=== PATIENT | male | born 1990 | race Caucasian/White ===

== ENCOUNTER 2018-05-28 19:47 | Inpatient (IN) | payer SELFPAY ==
[2018-05-28] MEDS ORDERED: Sodium Chloride 0.9% 1,000 ML IV ONE (19:49)
[2018-05-28] MEDS ORDERED: Ketorolac 30 MG/ML SDV IVPUSH ONE (19:49)
--- NOTE | 2018-05-28 19:52 | EDM.PDOC ---
ED HPI GENERAL MEDICAL PROBLEM - General Chief Complaint: Chest Pain Stated Complaint: CHEST PAIN Time Seen by Provider: 05/28/18 19:48 Source of Information: Reports: Patient History Limitations: Reports: No Limitations - History of Present Illness INITIAL COMMENTS - FREE TEXT/NARRATIVE: HISTORY AND PHYSICAL: History of present illness: Patient is a 28-year-old male who presents to the emergency room today with complaints of midsternal chest pain started one hour prior to arrival. He states it is worse when taking in deep breaths. He does appear anxious. He denies any diaphoresis, nausea, vomiting or pain radiating anywhere. Denies any recent injury, trauma or falls. Denies any fever, chills Smokes a pack per day 15 years. Denies any alcohol or drug abuse. Review of systems: As per history of present illness and below otherwise all systems reviewed and negative. Past medical history: As per history of present illness and as reviewed below otherwise noncontributory. Surgical history: As per history of present illness and as reviewed below otherwise noncontributory. Social history: No reported history of drug or alcohol abuse. Family history: As per history of present illness and as reviewed below otherwise noncontributory. Physical exam: General: Well-developed and well-nourished 28-year-old male. Alert and oriented. Nontoxic appearing and in no acute distress. HEENT: Atraumatic, normocephalic, pupils equal and reactive bilaterally, negative for conjunctival pallor or scleral icterus, mucous membranes moist, throat clear, neck supple, nontender, trachea midline. No drooling or trismus noted. No meningeal signs Lungs: Slightly diminished to left otherwise clear, breath sounds equal bilaterally, chest nontender. Chest has a protruding sternum distally (normal variance) Heart: S1S2, regular rate and rhythm without overt murmur Abdomen: Soft, nondistended, nontender. Negative for masses or hepatosplenomegaly. Negative for costovertebral tenderness. Pelvis: Stable nontender. Genitourinary: Deferred. Rectal: Deferred. Skin: Somewhat pale. Intact, warm, dry. No lesions or rashes noted. Extremities: Atraumatic, negative for cords or calf pain. Neurovascular unremarkable. Neuro: Awake, alert, oriented. Cranial nerves II through XII unremarkable. Cerebellum unremarkable. Motor and sensory unremarkable throughout. Exam nonfocal. Notes: Physical examination is unremarkable.Patient's lab work is unremarkable. His EKG is normal sinus rhythm with early re-pole. No previous EKGs for comparison. After the fluids and Toradol patient reports he feels improved. Chest x-ray shows that there is a spontaneous pneumo thorax to the left side. This was atraumatic. Patient has no history of spontaneous pneumo's. Does not take any anticoagulants. Dr Robin (general surgeon) was notified of this. He will come in to see that patient. Patient's current oxygenation is 96% on room air, heart rate 80 bpm. Pain is 11/25. 2057: [facility] called to inform of x-ray results. Patient is made aware of this. Room is being set up for chest tube. 2124: Dr Robin is here to see patient. Will admit to Med/Surg for inpatient admission Diagnostics: CBC, CMP, troponin, EKG, chest x-ray Therapeutics: IV fluid, aspirin, Toradol Impression: Spontaneous pneumothorax, left Plan: Inpatient admission Definitive disposition and diagnosis as appropriate pending reevaluation and review of above. Onset: Today Duration: Hour(s): Location: Reports: Chest chest Pain Score (Numeric/FACES): 4 - Related Data Allergies Allergy/AdvReac Type Severity Reaction Status Date / Time No Known Allergies Allergy Verified 05/28/18 19:52 Home Meds: Home Meds Diclofenac Sodium [Voltaren] 75 mg PO BIDMEALS PRN #30 tab.cr 05/28/18 [Rx] ED ROS GENERAL - Review of Systems Review Of Systems: ROS reveals no pertinent complaints other than HPI. ED EXAM, GENERAL - Physical Exam Exam: See Below (See dictation) Course - Vital Signs Last Recorded V/S: Last Vital Signs Temp 96.1 F 05/28/18 19:49 Pulse 89 05/28/18 19:49 Resp 18 05/28/18 19:49 BP 135/76 05/28/18 19:49 Pulse Ox 96 05/28/18 19:49 - Orders/Labs/Meds Orders: Active Orders 24 hr Category Date Time Status Admission Status [Patient Status] [ADT] Stat ADT 05/28/18 21:31 Ordered EKG Documentation Completion [RC] STAT Care 05/28/18 19:49 Active RT Aerosol Therapy [RC] ASDIRECTED Care 05/28/18 20:44 Active Chest 1V Frontal [CR] Stat Exams 05/28/18 19:49 Taken Chest 1V Frontal [CR] Stat Exams 05/28/18 21:30 Ordered Labs: Laboratory Tests 05/28/18 05/28/18 Range/Units 20:00 20:00 WBC 10.95 (4.0-11.0) K/uL RBC 5.29 (4.50-5.90) M/uL Hgb 16.9 (13.0-17.0) g/dL Hct 46.3 (38.0-50.0) % MCV 87.5 (80.0-98.0) fL MCH 31.9 (27.0-32.0) pg MCHC 36.5 (31.0-37.0) g/dL RDW Std Deviation 40.9 (28.0-62.0) fl RDW Coeff of Sid 13 (11.0-15.0) % Plt Count 227 (150-400) K/uL MPV 9.90 (7.40-12.00) fL Neut % (Auto) 44.2 L (48.0-80.0) % Lymph % (Auto) 41.9 H (16.0-40.0) % Charlton % (Auto) 7.7 (0.0-15.0) % Eos % (Auto) 5.5 (0.0-7.0) % Baso % (Auto) 0.7 (0.0-1.5) % Neut # (Auto) 4.8 (1.4-5.7) K/uL Lymph # (Auto) 4.6 H (0.6-2.4) K/uL Charlton # (Auto) 0.8 (0.0-0.8) K/uL Eos # (Auto) 0.6 (0.0-0.7) K/uL Baso # (Auto) 0.1 (0.0-0.1) K/uL Nucleated RBC % 0.0 /100WBC Nucleated RBCs # 0 K/uL Sodium 139 (136-148) mmol/L Potassium 3.5 (3.5-5.1) mmol/L Chloride 103 (98-107) mmol/L Carbon Dioxide 27.4 (21.0-32.0) mmol/L BUN 8 (7.0-18.0) mg/dL Creatinine 1.0 (0.8-1.3) mg/dL Est Cr Clr Drug Dosing 100.44 mL/min Estimated GFR (MDRD) > 60.0 ml/min Glucose 106 (74-106) mg/dL Calcium 8.9 (8.5-10.1) mg/dL Total Bilirubin 0.4 (0.2-1.0) mg/dL AST 20 (15-37) IU/L ALT 30 (14-63) IU/L Alkaline Phosphatase 58 (46-116) U/L Troponin I < 0.050 (0.000-0.056) ng/mL Total Protein 7.5 (6.4-8.2) g/dL Albumin 4.1 (3.4-5.0) g/dL Globulin 3.4 (2.0-3.5) g/dL Albumin/Globulin Ratio 1.2 L (1.3-2.8) Meds: Medications Discontinued Medications Generic Name Dose Route Start Last Admin Trade Name Nunoq PRN Reason Stop Dose Admin Albuterol/Ipratropium 3 ml 05/28/18 20:44 Duoneb 3.0-0.5 Mg/3 Ml NEB 05/28/18 20:45 ONETIME ONE Aspirin 324 mg 05/28/18 20:11 05/28/18 20:18 Aspirin PO 05/28/18 20:12 324 mg ONETIME ONE Administration Sodium Chloride 1,000 mls @ 999 mls/hr 05/28/18 19:49 05/28/18 20:13 Normal Saline IV 05/28/18 20:49 999 mls/hr STAT ONE Administration Ketorolac Tromethamine 30 mg 05/28/18 19:49 05/28/18 20:14 Toradol IVPUSH 05/28/18 19:50 30 mg ONETIME ONE Administration Nitroglycerin 0.4 mg 05/28/18 20:11 Nitrostat SL Q5M PRN Chest Pain Departure - Departure Time of Disposition: 21:31 Disposition: Admitted As Inpatient 67 Clinical Impression: Spontaneous pneumothorax Prescriptions: Diclofenac Sodium [Voltaren] 75 mg PO BIDMEALS PRN #30 tab.cr PRN Reason: Pain Referrals: PCP,None [Primary Care Provider] - Forms: ED Department Discharge Additional Instructions: The following information is given to patients seen in the emergency department who are being discharged to home. This information is to outline your options for follow-up care. We provide all patients seen in our emergency department with a follow-up referral. The need for follow-up, as well as the timing and circumstances, are variable depending upon the specifics of your emergency department visit. If you don't have a primary care physician on staff, we will provide you with a referral. We always advise you to contact your personal physician following an emergency department visit to inform them of the circumstance of the visit and for follow-up with them and/or the need for any referrals to a consulting specialist. The emergency department will also refer you to a specialist when appropriate. This referral assures that you have the opportunity for follow-up care with a specialist. All of these measure are taken in an effort to provide you with optimal care, which includes your follow-up. Under all circumstances we always encourage you to contact your private physician who remains a resource for coordinating your care. When calling for follow-up care, please make the office aware that this follow-up is from your recent emergency room visit. If for any reason you are refused follow-up, please contact the [facility] Emergency Department at and asked to speak to the emergency department charge nurse. [facility] [address] [place] [id number] 1. Take your medication as directed. 2. Please follow-up with your primary caregiver in the next 1-2 days. Return to the ED as needed and as discussed. - My Orders Last 24 Hours: My Active Orders 05/28/18 19:49 EKG Documentation Completion [RC] STAT Chest 1V Frontal [CR] Stat 05/28/18 20:44 RT Aerosol Therapy [RC] ASDIRECTED 05/28/18 21:30 Chest 1V Frontal [CR] Stat 05/28/18 21:31 Admission Status [Patient Status] [ADT] Stat - Assessment/Plan Last 24 Hours: My Active Orders 05/28/18 19:49 EKG Documentation Completion [RC] STAT Chest 1V Frontal [CR] Stat 05/28/18 20:44 RT Aerosol Therapy [RC] ASDIRECTED 05/28/18 21:30 Chest 1V Frontal [CR] Stat 05/28/18 21:31 Admission Status [Patient Status] [ADT] Stat
[2018-05-28] MEDS ORDERED: Aspirin 81 MG Tab.Chew PO ONE (20:11)
[2018-05-28] MEDS ORDERED: Nitroglycerin 0.4 MG Tab.SL SL PRN (20:11)
[2018-05-28 20:30] LABS: CHLORIDE,CL 103 mmol/L (98-107); SODIUM,NA 139 mmol/L (136-148)
[2018-05-28] MEDS ORDERED: Albuterol/Ipratropium 3.0-0.5 MG/3 ML Neb Soln NEB ONE (20:44)
[2018-05-28] MEDS ORDERED: Lidocaine 1% with EPINEPHrine 1:100,000 20 ML MDV ONE (21:33)
[2018-05-28] MEDS ORDERED: Morphine 10 MG/ML Syringe IVPUSH ONE (22:09)
[2018-05-28] MEDS ORDERED: Lidocaine 1% with EPINEPHrine 1:100,000 20 ML MDV INJECT ONE (22:11)
[2018-05-28] MEDS ORDERED: Morphine 10 MG/ML Syringe ONE (22:11)
--- NOTE | 2018-05-28 23:34 | PCM.SN ---
- Free Text/Narrative Note: pt seen, chart reviewed, spont ptx L, chesttube placed; cxr pending; [id number]
--- NOTE | 2018-05-28 23:38 | PCM.OPNOTE ---
- General Post-Op/Procedure Note Date of Surgery/Procedure: 05/28/18 Operative Procedure(s): chesttube placement 28 Fr, L Findings: L ptx resolving, cxr pending [id number] Pre Op Diagnosis: spont ptx L Post-Op Diagnosis: Same Anesthesia Technique: Moderate Sedation Primary Surgeon: Wolfgang Robin Complications: None Condition: Stable
--- NOTE | 2018-05-28 23:42 | PCM.SN ---
- Free Text/Narrative Note: 1) Chest tube to 20cm suction, not water seal. NEVER clamp any chest tube. 2) CXR qam X 3 3) chest ct in the morning.
[2018-05-29] MEDS: Acetaminophen/oxyCODONE 325-5 MG Tab PO PRN ×4 (00:44→19:13)
--- NOTE | 2018-05-29 05:48 | OR ---
SURGEON: Wolfgang Robin MD DATE OF PROCEDURE: 05/28/2018 PREOPERATIVE DIAGNOSIS: Spontaneous pneumothorax on the left. POSTOPERATIVE DIAGNOSIS: Spontaneous pneumothorax on the left. PROCEDURE PROPOSED: Chest tube placement. PROCEDURE PERFORMED: Chest tube placement, 20-[place], to the left. PROCEDURE IN DETAIL: The patient was explained about the postoperative course and the preoperative course. Consent was signed in chart. The patient was then put in the supine position and lying in decubitus position with the pneumothorax side up, nonpneumothorax side down. [place] was assessed to make sure that the chest tube entrance site is at least at the level of the nipple. The area was prepped and draped in a sterile fashion. The area was infiltrated with anesthetic agent one rib beside the entrance site on the skin incision. The entrance site was then opened up by use of hemostat and chest tube was inserted and virk of air was heard, chest tube was steamified. Chest tube was then secured and I ensured the chest tube was the last hose in the pleural cavity and chest tube was anchored to the skin by using silk stitches. With Vaseline gauze, appropriate dressing was placed. A chest x-ray was pending. The patient tolerated the procedure well. There were no intraoperative complications and Dr. Robin was present through the whole procedure. Just before surgery, a timeout was called. The patient was identified and procedure identified and procedure started. Chest x-ray is pending. FORD / LEI /[id number]
--- NOTE | 2018-05-29 05:53 | CONS ---
DATE OF CONSULTATION: 05/28/2018 DATE OF : 1990 PRIMARY CARE PHYSICIAN: None PCP Consult was called. The patient is seen shortly after. CONSULTING QUESTION: Spontaneous pneumothorax on the left. HISTORY OF PRESENT ILLNESS: The patient is a 28-year-old gentleman, tall, thin, 5 feet 11 inches, and 141 pounds, complained instant left-sided chest pain happening about an hour ago and difficult to breathe. Seen in the emergency room, noted to be hemodynamically stable. Workup, chest x-ray shows a left-sided pneumothorax 50% lung. Surgery was consulted. The patient denied prior episode, and currently, the patient denies syncope and headache, but left side when he breathes, it hurts. PAST MEDICAL HISTORY: Significant for no diabetes, MO, CVA, or hypertension. SOCIAL HISTORY: The patient is active daily smoker. Denied chewing tobacco. There is some alcohol use. FAMILY HISTORY: Noncontributory. ALLERGIES: Please refer to nursing note for details. MEDICATIONS: Please refer to nursing note for details. PAST SURGICAL HISTORY: No surgery in the past. PHYSICAL EXAMINATION: GENERAL: A very pleasant nice young gentleman, smiled to doctor, in no acute distress. HEENT: Normocephalic and atraumatic. Sclerae are anicteric. LUNGS: Clear to auscultation. HEART: Regular rate and rhythm. CHEST: Trachea is midline. No cutaneous crepitus. Decreased breath sounds on the left side. IMAGING: Chest x-ray shows a large left-sided pneumothorax. Trachea is midline. IMPRESSION AND PLAN: Spontaneous pneumothorax, and will benefit from a chest tube placement to the left side. Risks and benefits discussed with the patient including bleeding, infection, and chest tube management. The patient concurred to proceed as planned. Chest tube is seen, and chest x-ray is pending. FORD / LEI /[id number]
--- NOTE | 2018-05-29 12:19 | PCM.SURGPN ---
- General Info Date of Service: 05/29/18 Functional Status: Reports: Pain Controlled - Review of Systems General: Reports: No Symptoms Pulmonary: Reports: No Symptoms (ct, no air leak, no co, slept through the whole night. pain under control) Cardiovascular: Reports: No Symptoms Gastrointestinal: Reports: No Symptoms - Patient Data Vitals - Most Recent: Last Vital Signs Temp 97.5 F 05/29/18 07:15 Pulse 65 05/29/18 07:15 Resp 18 05/29/18 07:15 BP 119/75 05/29/18 07:15 Pulse Ox 98 05/29/18 07:15 Weight - Most Recent: 141 lb 1.533 oz I&O - Last 24 Hours: Intake & Output 05/28/18 05/29/18 05/29/18 22:59 06:59 14:59 Intake Total 400 Output Total 500 Balance -100 Lab Results Last 24 Hrs: Laboratory Results - last 24 hr 05/28/18 05/28/18 Range/Units 20:00 20:00 WBC 10.95 (4.0-11.0) K/uL RBC 5.29 (4.50-5.90) M/uL Hgb 16.9 (13.0-17.0) g/dL Hct 46.3 (38.0-50.0) % MCV 87.5 (80.0-98.0) fL MCH 31.9 (27.0-32.0) pg MCHC 36.5 (31.0-37.0) g/dL RDW Std Deviation 40.9 (28.0-62.0) fl RDW Coeff of Sid 13 (11.0-15.0) % Plt Count 227 (150-400) K/uL MPV 9.90 (7.40-12.00) fL Neut % (Auto) 44.2 L (48.0-80.0) % Lymph % (Auto) 41.9 H (16.0-40.0) % Dolores % (Auto) 7.7 (0.0-15.0) % Eos % (Auto) 5.5 (0.0-7.0) % Baso % (Auto) 0.7 (0.0-1.5) % Neut # (Auto) 4.8 (1.4-5.7) K/uL Lymph # (Auto) 4.6 H (0.6-2.4) K/uL Dolores # (Auto) 0.8 (0.0-0.8) K/uL Eos # (Auto) 0.6 (0.0-0.7) K/uL Baso # (Auto) 0.1 (0.0-0.1) K/uL Nucleated RBC % 0.0 /100WBC Nucleated RBCs # 0 K/uL Sodium 139 (136-148) mmol/L Potassium 3.5 (3.5-5.1) mmol/L Chloride 103 (98-107) mmol/L Carbon Dioxide 27.4 (21.0-32.0) mmol/L BUN 8 (7.0-18.0) mg/dL Creatinine 1.0 (0.8-1.3) mg/dL Est Cr Clr Drug Dosing 100.44 mL/min Estimated GFR (MDRD) > 60.0 ml/min Glucose 106 (74-106) mg/dL Calcium 8.9 (8.5-10.1) mg/dL Total Bilirubin 0.4 (0.2-1.0) mg/dL AST 20 (15-37) IU/L ALT 30 (14-63) IU/L Alkaline Phosphatase 58 (46-116) U/L Troponin I < 0.050 (0.000-0.056) ng/mL Total Protein 7.5 (6.4-8.2) g/dL Albumin 4.1 (3.4-5.0) g/dL Globulin 3.4 (2.0-3.5) g/dL Albumin/Globulin Ratio 1.2 L (1.3-2.8) Med Orders - Current: Current Medications Oxycodone/Acetaminophen (Percocet 325-5 Mg) 1 tab PO Q6H PRN PRN Reason: Pain Last Admin: 05/29/18 06:44 Dose: 1 tab Discontinued Medications Albuterol/Ipratropium (Duoneb 3.0-0.5 Mg/3 Ml) 3 ml NEB ONETIME ONE Stop: 05/28/18 20:45 Last Admin: 05/28/18 23:40 Dose: Not Given Aspirin (Aspirin) 324 mg PO ONETIME ONE Stop: 05/28/18 20:12 Last Admin: 05/28/18 20:18 Dose: 324 mg Sodium Chloride (Normal Saline) 1,000 mls @ 999 mls/hr IV STAT ONE Stop: 05/28/18 20:49 Last Admin: 05/28/18 20:13 Dose: 999 mls/hr Ketorolac Tromethamine (Toradol) 30 mg IVPUSH ONETIME ONE Stop: 05/28/18 19:50 Last Admin: 05/28/18 20:14 Dose: 30 mg Lidocaine/Epinephrine (Xylocaine 1% With Epinephrine 1:100,000) Confirm Administered Dose 40 ml .ROUTE .STK-MED ONE Stop: 05/28/18 21:34 Last Admin: 05/28/18 23:41 Dose: Not Given Lidocaine/Epinephrine (Xylocaine 1% With Epinephrine 1:100,000) 40 ml INJECT ONETIME ONE Stop: 05/28/18 22:12 Last Admin: 05/28/18 23:42 Dose: Not Given Morphine Sulfate (Morphine) 20 mg IVPUSH ONETIME ONE Stop: 05/28/18 22:10 Last Admin: 05/28/18 23:41 Dose: Not Given Morphine Sulfate (Morphine) Confirm Administered Dose 20 mg .ROUTE .STK-MED ONE Stop: 05/28/18 22:12 Last Admin: 05/28/18 23:41 Dose: Not Given Nitroglycerin (Nitrostat) 0.4 mg SL Q5M PRN PRN Reason: Chest Pain - Exam General: Alert, Oriented Lungs: Clear to Auscultation, Normal Respiratory Effort GI/Abdominal Exam: Normal Bowel Sounds, Soft, Non-Tender - Problem List Review Problem List Initiated/Reviewed/Updated: Yes - My Orders Last 24 Hours: Active Orders 24 hr Category Date Time Status Admission Status [Patient Status] [ADT] Routine ADT 05/28/18 23:13 Active Admission Status [Patient Status] [ADT] Stat ADT 05/28/18 21:31 Active Chest Tube Management [RC] Q4H Care 05/28/18 23:20 Active Oxygen Therapy [RC] ASDIRECTED Care 05/28/18 23:17 Active RT Aerosol Therapy [RC] ASDIRECTED Care 05/28/18 20:44 Active Telemetry Monitoring [Cardiac Monitoring] [RC] Q8H Care 05/28/18 23:30 Active CXR [Chest 2V] [CR] AM Exams 05/29/18 05:11 Ordered CXR [Chest 2V] [CR] AM Exams 05/30/18 05:11 Taken CXR [Chest 2V] [CR] AM Exams 05/31/18 05:11 Ordered CXR [Chest 2V] [CR] AM Exams 06/01/18 05:11 Ordered Chest 1V Frontal [CR] Routine Exams 05/28/18 23:29 Taken Chest 1V Frontal [CR] Stat Exams 05/28/18 19:49 Taken Chest 1V Frontal [CR] Stat Exams 05/28/18 21:30 Taken Chest wo Cont [CT] Routine Exams 05/29/18 08:00 Taken Acetaminophen/oxyCODONE [Percocet 325-5 MG] Med 05/28/18 23:17 Active 1 tab PO Q6H PRN Medication Orders Oxycodone/Acetaminophen (Percocet 325-5 Mg) 1 tab PO Q6H PRN PRN Reason: Pain Last Admin: 05/29/18 06:44 Dose: 1 tab Admin: 05/29/18 00:44 Dose: 1 tab - Assessment Assessment (Free Text/Narrative):: doing very well after ct placement; ct no drainage, no air leak; ct no ptx, cxr , small apical ptx; continue NC O2, re check cxr tomorrow, likely water seal tomorrow X 24 hrs, re check cxr, if no ptx after 24 hr water seal, pull ct, home ; ct chest does not show any bleb, surprising. - Plan Plan (Free Text/Narrative):: doing very well after ct placement; ct no drainage, no air leak; ct no ptx, cxr , small apical ptx; continue NC O2, re check cxr tomorrow, likely water seal tomorrow X 24 hrs, re check cxr, if no ptx after 24 hr water seal, pull ct, home ; ct chest does not show any bleb, surprising.
[2018-05-30] MEDS: Acetaminophen/oxyCODONE 325-5 MG Tab PO PRN ×3 (01:36→17:47)
--- NOTE | 2018-05-30 12:45 | PCM.SURGPN ---
- General Info Date of Service: 05/30/18 Functional Status: Reports: Pain Controlled - Review of Systems General: Reports: No Symptoms Pulmonary: Reports: No Symptoms (on nc 1 L, no desat; no co; pain in good control) Systems Review Comment:: CXR , no ptx - Patient Data Vitals - Most Recent: Last Vital Signs Temp 96.3 F 05/30/18 12:00 Pulse 53 L 05/30/18 12:00 Resp 22 H 05/30/18 12:00 BP 124/77 05/30/18 12:00 Pulse Ox 100 05/30/18 12:00 Weight - Most Recent: 141 lb 1.533 oz I&O - Last 24 Hours: Intake & Output 05/29/18 05/30/18 05/30/18 22:59 06:59 14:59 Intake Total 750 1100 Output Total 400 1230 Balance 350 -130 Med Orders - Current: Current Medications Oxycodone/Acetaminophen (Percocet 325-5 Mg) 1 tab PO Q6H PRN PRN Reason: Pain Last Admin: 05/30/18 09:00 Dose: 1 tab Discontinued Medications Albuterol/Ipratropium (Duoneb 3.0-0.5 Mg/3 Ml) 3 ml NEB ONETIME ONE Stop: 05/28/18 20:45 Last Admin: 05/28/18 23:40 Dose: Not Given Aspirin (Aspirin) 324 mg PO ONETIME ONE Stop: 05/28/18 20:12 Last Admin: 05/28/18 20:18 Dose: 324 mg Sodium Chloride (Normal Saline) 1,000 mls @ 999 mls/hr IV STAT ONE Stop: 05/28/18 20:49 Last Admin: 05/28/18 20:13 Dose: 999 mls/hr Ketorolac Tromethamine (Toradol) 30 mg IVPUSH ONETIME ONE Stop: 05/28/18 19:50 Last Admin: 05/28/18 20:14 Dose: 30 mg Lidocaine/Epinephrine (Xylocaine 1% With Epinephrine 1:100,000) Confirm Administered Dose 40 ml .ROUTE .STK-MED ONE Stop: 05/28/18 21:34 Last Admin: 05/28/18 23:41 Dose: Not Given Lidocaine/Epinephrine (Xylocaine 1% With Epinephrine 1:100,000) 40 ml INJECT ONETIME ONE Stop: 05/28/18 22:12 Last Admin: 05/28/18 23:42 Dose: Not Given Morphine Sulfate (Morphine) 20 mg IVPUSH ONETIME ONE Stop: 05/28/18 22:10 Last Admin: 05/28/18 23:41 Dose: Not Given Morphine Sulfate (Morphine) Confirm Administered Dose 20 mg .ROUTE .STK-MED ONE Stop: 05/28/18 22:12 Last Admin: 05/28/18 23:41 Dose: Not Given Nitroglycerin (Nitrostat) 0.4 mg SL Q5M PRN PRN Reason: Chest Pain - Exam General: Alert, Oriented Lungs: Clear to Auscultation, Normal Respiratory Effort (trach ML, no cutaneous crepitus;) - Problem List Review Problem List Initiated/Reviewed/Updated: Yes - My Orders Last 24 Hours: Active Orders 24 hr Category Date Time Status CXR [Chest 2V] [CR] AM Exams 05/31/18 05:11 Ordered CXR [Chest 2V] [CR] AM Exams 06/01/18 05:11 Ordered Chest 2V [CR] Stat Exams 05/30/18 08:00 Taken Medication Orders Oxycodone/Acetaminophen (Percocet 325-5 Mg) 1 tab PO Q6H PRN PRN Reason: Pain Last Admin: 05/30/18 09:00 Dose: 1 tab Admin: 05/30/18 01:36 Dose: 1 tab Admin: 05/29/18 19:13 Dose: 1 tab Admin: 05/29/18 12:24 Dose: 1 tab Admin: 05/29/18 06:44 Dose: 1 tab Admin: 05/29/18 00:44 Dose: 1 tab - Assessment Assessment (Free Text/Narrative):: doing well, no ptx X 48 hrs; clinically doing well, no airleak on chest tube; water seal now; cxr in am, in no ptx, pull tube, home; chest ct does not show bleb, CT consult maybe benefitial - Plan Plan (Free Text/Narrative):: doing well, no ptx X 48 hrs; clinically doing well, no airleak on chest tube; water seal now; cxr in am, in no ptx, pull tube, home; chest ct does not show bleb, CT consult maybe benefitial
[2018-05-31] MEDS: Acetaminophen/oxyCODONE 325-5 MG Tab PO PRN ×3 (00:08→15:27)
--- NOTE | 2018-05-31 09:54 | CR ---
EXAMINATION: Two-view chest (PA and Lateral views). HISTORY: Pneumothorax. FINDINGS: The trachea is midline. The cardiomediastinal silhouette is within normal limits. There is a left-vianca ed chest tube in place with a pneumothorax measuring 1.6 cm at the apex, unchanged from the day prior . No infiltrates or pleural effusion. Osseous structures appear unremarkable. IMPRESSION: Stable left-sided chest tube with a small 1.6 cm left apical pneumothorax.
--- NOTE | 2018-05-31 12:36 | PCM.SURGPN ---
- General Info Date of Service: 05/31/18 Functional Status: Reports: Pain Controlled - Review of Systems General: Reports: No Symptoms Pulmonary: Reports: No Symptoms (ptx reread yesterday and today, small apical ptx 1.6cm, no change 24 hr) Gastrointestinal: Reports: No Symptoms - Patient Data Vitals - Most Recent: Last Vital Signs Temp 97.6 F 05/31/18 11:54 Pulse 70 05/31/18 11:54 Resp 16 05/31/18 11:54 BP 122/71 05/31/18 11:54 Pulse Ox 99 05/31/18 11:54 Weight - Most Recent: 141 lb 1.533 oz I&O - Last 24 Hours: Intake & Output 05/30/18 05/31/18 05/31/18 22:59 06:59 14:59 Intake Total 850 500 Output Total 722 605 Balance 128 -105 Med Orders - Current: Current Medications Oxycodone/Acetaminophen (Percocet 325-5 Mg) 1 tab PO Q6H PRN PRN Reason: Pain Last Admin: 05/31/18 07:23 Dose: 1 tab Discontinued Medications Albuterol/Ipratropium (Duoneb 3.0-0.5 Mg/3 Ml) 3 ml NEB ONETIME ONE Stop: 05/28/18 20:45 Last Admin: 05/28/18 23:40 Dose: Not Given Aspirin (Aspirin) 324 mg PO ONETIME ONE Stop: 05/28/18 20:12 Last Admin: 05/28/18 20:18 Dose: 324 mg Sodium Chloride (Normal Saline) 1,000 mls @ 999 mls/hr IV STAT ONE Stop: 05/28/18 20:49 Last Admin: 05/28/18 20:13 Dose: 999 mls/hr Ketorolac Tromethamine (Toradol) 30 mg IVPUSH ONETIME ONE Stop: 05/28/18 19:50 Last Admin: 05/28/18 20:14 Dose: 30 mg Lidocaine/Epinephrine (Xylocaine 1% With Epinephrine 1:100,000) Confirm Administered Dose 40 ml .ROUTE .STK-MED ONE Stop: 05/28/18 21:34 Last Admin: 05/28/18 23:41 Dose: Not Given Lidocaine/Epinephrine (Xylocaine 1% With Epinephrine 1:100,000) 40 ml INJECT ONETIME ONE Stop: 05/28/18 22:12 Last Admin: 05/28/18 23:42 Dose: Not Given Morphine Sulfate (Morphine) 20 mg IVPUSH ONETIME ONE Stop: 05/28/18 22:10 Last Admin: 05/28/18 23:41 Dose: Not Given Morphine Sulfate (Morphine) Confirm Administered Dose 20 mg .ROUTE .STK-MED ONE Stop: 05/28/18 22:12 Last Admin: 05/28/18 23:41 Dose: Not Given Nitroglycerin (Nitrostat) 0.4 mg SL Q5M PRN PRN Reason: Chest Pain - Exam General: Alert, Oriented Lungs: Clear to Auscultation, Normal Respiratory Effort - Problem List Review Problem List Initiated/Reviewed/Updated: Yes - My Orders Last 24 Hours: Active Orders 24 hr Category Date Time Status CXR [Chest 2V] [CR] AM Exams 06/01/18 05:11 Ordered Medication Orders Oxycodone/Acetaminophen (Percocet 325-5 Mg) 1 tab PO Q6H PRN PRN Reason: Pain Last Admin: 05/31/18 07:23 Dose: 1 tab Admin: 05/31/18 00:08 Dose: 1 tab Admin: 05/30/18 17:47 Dose: 1 tab Admin: 05/30/18 09:00 Dose: 1 tab Admin: 05/30/18 01:36 Dose: 1 tab Admin: 05/29/18 19:13 Dose: 1 tab Admin: 05/29/18 12:24 Dose: 1 tab Admin: 05/29/18 06:44 Dose: 1 tab Admin: 05/29/18 00:44 Dose: 1 tab - Assessment Assessment (Free Text/Narrative):: doing well w chest tube placement, and cxr showed 1.6 cm tiny apical ptx, no change in 24 hr; would check another cxr tomorrow morning, and likely pull tube and home; pt has been brief on plan and concur - Plan Plan (Free Text/Narrative):: doing well w chest tube placement, and cxr showed 1.6 cm tiny apical ptx, no change in 24 hr; would check another cxr tomorrow morning, and likely pull tube and home; pt has been brief on plan and concur
--- NOTE | 2018-05-31 14:12 | CR ---
EXAM DATE: 05/28/18 PATIENT'S AGE: 28 Patient: ENOCH GLASGOW Facility: [facility], [place], [place] Site . Site : 1990 Study: XRay Chest [id number]/13/2018 8:51:46 PM Ordering Physician: Doctor Farris Final Report: INDICATION: Chest pain. TECHNIQUE: Chest radiograph 1 view COMPARISON: None FINDINGS: Large left pneumothorax with slight degree of left to right mediastinal shift. Pleural separation in the left upper lung zone estimated at 6.5 centimeters. Right helen thorax clear. Heart size within normal limits. No displaced rib fracture deformity. Clavicles intact. IMPRESSION: 1. LARGE LEFT PNEUMOTHORAX WITH SLIGHT MEDIASTINAL SHIFT. 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 Dictated by Rolando Jensen MD @ 05/28/2018 8:59:40 PM Dictated by: Rolando Jensen MD @ 05/28/2018 20:59:48 (Electronic Signature) Report Signed by Proxy. [facility]
--- NOTE | 2018-05-31 15:08 | CR ---
EXAM DATE: 05/28/18 PATIENT'S AGE: 28 Patient: ENOCH GLASGOW Facility: [place], [place] Site . Site : 1990 Study: XRay Chest [id number]/13/2018 11:01:56 PM Ordering Physician: Doctor Farris Final Report: INDICATION: Chest tube placement for pneumothorax TECHNIQUE: Chest radiograph 1 view COMPARISON: 05/28/2018 FINDINGS: Mediastinum: The mediastinum is normal in appearance. The heart silhouette is normal in size and morphology. Large left pneumothorax present without significant interval change after placement of left apical chest tube. Lungs: Fallen left lung and mild left basilar atelectasis noted. The right lung is clear. No sign of pleural effusion seen. Bones and soft tissue: Unremarkable for age. IMPRESSION: 1. Large left pneumothorax present without significant interval change after placement of left apical chest tube. Dictated by Jacob Bustamante MD @ 05/28/2018 11:16:18 PM Dictated by: Jacob Bustamante MD @ 05/28/2018 23:16:27 (Electronic Signature) Report Signed by Proxy. [facility]
--- NOTE | 2018-05-31 15:08 | CR ---
EXAM DATE: 05/28/18 PATIENT'S AGE: 28 Patient: ENOCH GLASGOW Facility: [place], [place] Site . Site : 1990 Study: XRay Chest [id number]/13/2018 11:48:37 PM Ordering Physician: Sharda Goss Final Report: INDICATION: Pneumothorax TECHNIQUE: Chest 1 view. 11:36 p.m. COMPARISON: 8:39PM FINDINGS: Cardiovascular and mediastinum: Heart size and vasculature are normal in caliber and appearance. Mediastinum is within normal limits. Lungs and pleural space: The chest tube tip terminates of the left lung apex. Lungs are clear. No sign of infiltrate or mass. No sign of pleural effusion. Residual triangular density left lower lobe and areas of previous lung collapse. No definitive pneumothorax demonstrated. Bones and soft tissues: No significant findings. IMPRESSION: Left chest tube tip terminates of the left lung apex. Persistent irregular shaped density left lower lobe in the region of the patient`s prior collapse. No definitive pneumothorax. Recommend [id number] decubitus film to definitively evaluate for residual pneumothorax. Dictated by Magdy Waldrop MD @ 05/28/2018 11:56:07 PM Dictated by: Magdy Waldrop MD @ 05/28/2018 23:56:19 (Electronic Signature) Report Signed by Proxy. [facility]
--- NOTE | 2018-05-31 15:16 | CR ---
EXAM DATE: 05/28/18 PATIENT'S AGE: 28 Patient: ENOCH GLASGOW Facility: [place], [place] Site . Site : 1990 Study: XRay Chest [id number]/14/2018 6:37:27 AM Ordering Physician: Sharda Goss Final Report: INDICATION: Left pneumothorax. COMPARISON: 11:36 p.m. 05/28/2018 chest radiograph. FINDINGS/IMPRESSION: Unchanged position of left chest tube. Small pneumothorax at the left apex measuring approximately 1.6 centimeters in thickness. Lungs appear clear aside from minimal atelectasis in the lower left lung. Normal heart size. No pleural effusion. Unremarkable bony structures. Dictated by Naun Kirk MD @ 05/29/2018 6:51:53 AM Dictated by: Naun Kirk MD @ 05/29/2018 06:52:34 (Electronic Signature) Report Signed by Proxy. [facility]
--- NOTE | 2018-05-31 15:17 | CT ---
EXAM DATE: 05/28/18 PATIENT'S AGE: 28 Patient: ENOCH GLASGOW Facility: [place], [place] Site . Site : 1990 Study: CT Chest [id number]/14/2018 6:38:02 AM Ordering Physician: Sharda Goss Final Report: INDICATION: left pneumothorax CT CHEST WITHOUT CONTRAST TECHNIQUE: Multidetector CT imaging was performed through the chest without intravenous contrast administration. Coronal and sagittal reconstructions were generated. COMPARISON: None. FINDINGS: Lungs and airways: Moderate amount of atelectasis in the left lower lobe and minimal atelectasis in the right lower lobe. No hilar lymphadenopathy. Pleura and pleural spaces: Left chest tube enters the chest between the anterolateral left 4th and 5th ribs, extends superiorly along the lateral aspect of the left upper lobe, and terminates with its tip near the left apex. No pneumothorax or pleural fluid collection is seen. Heart and mediastinum: Normal heart size. No significant pericardial effusion. No mediastinal lymphadenopathy. Vascular structures: Normal caliber aorta. Chest wall and axillae: Small amount of gas in the left chest wall near the chest tube insertion site. No mass or axillary lymphadenopathy. Osseous structures: Normal for age. No acute fractures identified. Upper abdomen: Unremarkable. IMPRESSION: 1. Left chest tube as detailed above. No pneumothorax identified. 2. Bilateral lower lobe atelectasis, moderate on the left and minimal on the right. PALOMO YOUNG MD [employer] Dictated by Naun Young MD @ 05/29/2018 7:02:44 AM Dictated by: Naun Young MD @ 05/29/2018 07:03:45 (Electronic Signature) Report Signed by Proxy. [facility]
--- NOTE | 2018-05-31 17:13 | CR ---
EXAM DATE: 05/28/18 PATIENT'S AGE: 28 Patient: ENOCH GLASGOW Facility: [place], [place] Site . Site : 1990 Study: XRay Chest [id number]/15/2018 9:25:41 AM Ordering Physician: Sharda Goss Final Report: INDICATION: left pneumothorax COMPARISON: CT and x-rays 05/29/2018. FINDINGS: PA and lateral views of the chest redemonstrate a left-sided thoracostomy tube in place, unchanged. No appreciable left pneumothorax. The lungs are clear. Heart size is normal. Osseous structures are unremarkable. IMPRESSION: Stable position of a left thoracostomy tube. No pneumothorax. Dictated by Des Klein MD @ 05/30/2018 9:49:53 AM Dictated by: Des Klein MD @ 05/30/2018 09:49:57 (Electronic Signature) Report Signed by Proxy. [facility]
[2018-06-01] MEDS: Acetaminophen/oxyCODONE 325-5 MG Tab PO PRN ×2 (00:11→07:30)
[2018-06-01] MEDS ORDERED: Silver Sulfadiazine 1% Crm 50 GM Tube TOP SCH (09:30)
--- NOTE | 2018-06-01 10:02 | PCM.DCSUM1 ---
Discharge Summary - Hospital Course Free Text/Narrative:: presented to ED w acute onset spont ptx; 28Fr chest tube to the L inserted in ED ; lung was up then Diagnosis: Stroke: No - Discharge Data Discharge Date: 06/01/18 Discharge Disposition: Home, Self-Care 01 Condition: Stable - Patient Summary/Data Operative Procedure(s) Performed: chesttube placement 28 Fr, L Hospital Course: pt was admitted for spont ptx L, chestube placement to L, pain in good control; on 20cm suction X 2 days, then water seal X 2 days, chestxray no change X 3 days ; chest tube pulled, pt dc home; fu 2 wks; pt has one stitch to be dc on return office visit - Patient Instructions Diet: Regular Diet as Tolerated Activity: No Lifting Over 25 Pounds, No Strenuous Activities Driving: Do Not Drive Showering/Bathing: May Shower Wound/Incision Care: Keep Operative Site/Wound Site Clean and Dry Notify Provider of: Fever, Drainage, Nausea and/or Vomiting - Discharge Plan Prescriptions/Med Rec: Acetaminophen/oxyCODONE [Percocet 325-5 MG] 1 each PO Q6H #30 tab Home Medications: Home Meds Acetaminophen/oxyCODONE [Percocet 325-5 MG] 1 each PO Q6H #30 tab 06/01/18 [Rx] Patient Handouts: Steps to Quit Smoking, [id number], Acetaminophen; Oxycodone tablets, Silver Sulfadiazine skin cream, Pneumothorax Referrals: Wolfgang Robin MD [Physician] - 06/22/18 9:00 am (Please arrive 15 minutes early for check in) - Discharge Summary/Plan Comment DC Time >30 min.: Yes - Patient Data Vitals - Most Recent: Last Vital Signs Temp 97.7 F 06/01/18 07:41 Pulse 63 06/01/18 07:41 Resp 17 06/01/18 07:41 BP 137/86 06/01/18 07:41 Pulse Ox 95 06/01/18 07:41 Weight - Most Recent: 141 lb 1.533 oz I&O - Last 24 hours: Intake & Output 05/31/18 06/01/18 06/01/18 22:59 06:59 14:59 Intake Total 400 600 Output Total 800 1100 Balance -400 -500 Med Orders - Current: Current Medications Oxycodone/Acetaminophen (Percocet 325-5 Mg) 1 tab PO Q6H PRN PRN Reason: Pain Last Admin: 06/01/18 07:30 Dose: 1 tab Silver Sulfadiazine (Silvadene 1% Cream 50 Gm) 1 gm TOP DAILY CLARISSA Last Admin: 06/01/18 09:51 Dose: 1 gram Discontinued Medications Albuterol/Ipratropium (Duoneb 3.0-0.5 Mg/3 Ml) 3 ml NEB ONETIME ONE Stop: 05/28/18 20:45 Last Admin: 05/28/18 23:40 Dose: Not Given Aspirin (Aspirin) 324 mg PO ONETIME ONE Stop: 05/28/18 20:12 Last Admin: 05/28/18 20:18 Dose: 324 mg Sodium Chloride (Normal Saline) 1,000 mls @ 999 mls/hr IV STAT ONE Stop: 05/28/18 20:49 Last Admin: 05/28/18 20:13 Dose: 999 mls/hr Ketorolac Tromethamine (Toradol) 30 mg IVPUSH ONETIME ONE Stop: 05/28/18 19:50 Last Admin: 05/28/18 20:14 Dose: 30 mg Lidocaine/Epinephrine (Xylocaine 1% With Epinephrine 1:100,000) Confirm Administered Dose 40 ml .ROUTE .STK-MED ONE Stop: 05/28/18 21:34 Last Admin: 05/28/18 23:41 Dose: Not Given Lidocaine/Epinephrine (Xylocaine 1% With Epinephrine 1:100,000) 40 ml INJECT ONETIME ONE Stop: 05/28/18 22:12 Last Admin: 05/28/18 23:42 Dose: Not Given Morphine Sulfate (Morphine) 20 mg IVPUSH ONETIME ONE Stop: 05/28/18 22:10 Last Admin: 05/28/18 23:41 Dose: Not Given Morphine Sulfate (Morphine) Confirm Administered Dose 20 mg .ROUTE .STK-MED ONE Stop: 05/28/18 22:12 Last Admin: 05/28/18 23:41 Dose: Not Given Nitroglycerin (Nitrostat) 0.4 mg SL Q5M PRN PRN Reason: Chest Pain
--- NOTE | 2018-06-01 17:12 | CR ---
EXAM DATE: 05/28/18 PATIENT'S AGE: 28 Patient: ENOCH GLASGOW Facility: [place], [place] Site . Site : 1990 Study: XRay Chest [id number]/17/2018 5:06:38 AM Ordering Physician: Sharda Goss Final Report: INDICATION: Followup left pneumothorax. TECHNIQUE: Chest radiograph 2 views COMPARISON: 05/30/2018. FINDINGS: Stable positioning of left chest tube, tip of the left lung apex. Tiny residual apical left pneumothorax, no significant change from 2 days prior. Right helen thorax clear. No mediastinal shift. Heart and mediastinal contours are unchanged. IMPRESSION: 1. Tiny apical left pneumothorax with stable positioning of left chest tube. Overall, stable findings from 05/30/2018. Dictated by Rolando Jensen MD @ 06/01/2018 5:30:02 AM Dictated by: Rolando Jensen MD @ 06/01/2018 05:30:06 (Electronic Signature) Report Signed by Proxy. [facility]
== END 2018-06-01 10:00 | disposition home or self-care (01) | DRG 201 ==
LOC: MW.ED 19:47 → MW.MS 21:31
PROVIDERS: ADMIT Surgery; ATTEND Surgery
PROC: 0W9B00Z Drainage of Left Pleural Cavity with Drainage Device, Open Approach (ICD-10-PCS; principal; 2018-05-28)
DX: J93.83 Other pneumothorax (principal); Z79.899 Other long term (current) drug therapy
CPT/HCPCS: 36415; 71045; 71045-26; 71046; 71046-26; 71250; 71250-26; 80053; 84484; 85025; 93005; 96361; 96374; 96375; 96376; 99285-25; A9270-GY; J1885; J7040